=== PATIENT | male | born 1980 | race Caucasian/White ===

== ENCOUNTER 2018-01-21 05:19 | Day surgery (SDC) | payer OTHER ==
[~2018-01-21 05:19] MED LIST: CEFAZOLIN 2 GM/D5W RTU 2 GM/50 ML RTUPB IV PRN; LACTATED RINGERS 1000 ML IV PRN; LIDOCAINE 0.5% INJ-PF (5 MG/ML) 50 ML SDV SUBCUT PRN
[2018-01-21] MEDS ORDERED: CEFAZOLIN 2 GM/D5W RTU 2 GM/50 ML RTUPB IV ONE (05:58)
[2018-01-21] MEDS ORDERED: ONDANSETRON HCL INJ/PF 4 MG/2 ML SDV ONE (06:18)
[2018-01-21] MEDS ORDERED: FENTANYL CITRATE INJ/PF 250 MCG/5 ML AMPULE ONE (06:18)
[2018-01-21] MEDS ORDERED: ACETAMINOPHEN 1,000 MG/100 ML RTUPB IV ONE (06:18)
[2018-01-21] MEDS ORDERED: DEXAMETHASONE SOD PHOSPHATE INJ 4 MG/1 ML VIAL ONE (06:18)
[2018-01-21] MEDS ORDERED: PROPOFOL INJ 200 MG/20 ML VIAL IV ONE (06:18)
[2018-01-21] MEDS ORDERED: LIDOCAINE 2% INJ-PF (20 MG/ML) 10 ML AMPUL ONE (06:18)
[2018-01-21] MEDS ORDERED: MIDAZOLAM 2 MG/2 ML INJ ONE (06:19)
[2018-01-21] MEDS ORDERED: BUPIVACAINE HCL 0.5 % INJ/PF 30 ML SDV ONE (06:47)
[2018-01-21] MEDS ORDERED: DEXMEDETOMIDINE INJ 80 MCG/20 ML VIAL IV ONE (07:12)
[2018-01-21] MEDS ORDERED: SUCCINYLCHOLINE CHLORIDE INJ 200 MG/10 ML VIAL ONE (08:08)
[2018-01-21] MEDS ORDERED: DIPHENHYDRAMINE HCL 50 MG/ML VIAL IV PRN ×2 (08:20→10:31)
[2018-01-21] MEDS ORDERED: FENTANYL CITRATE INJ/PF 100 MCG/2 ML AMPUL IV PRN ×6 (08:20→10:31)
[2018-01-21] MEDS ORDERED: PROMETHAZINE HCL INJ 25 MG/1 ML VIAL IV PRN ×4 (08:20→10:31)
[2018-01-21] MEDS ORDERED: ONDANSETRON HCL INJ/PF 4 MG/2 ML SDV IV PRN ×3 (08:20→11:14)
[2018-01-21] MEDS ORDERED: MORPHINE SULFATE 10 MG/ML INJ IV PRN ×3 (08:20→11:14)
[2018-01-21] MEDS ORDERED: MEPERIDINE HCL/PF INJ 25 MG/1 ML DISP.SYRIN IV PRN ×2 (08:20→10:31)
[2018-01-21] MEDS ORDERED: OXYCODONE-ACETAMINOPHEN 5-325 MG TABLET PO PRN (11:14)
--- NOTE | 2018-01-21 11:15 | Discharge Summary ---
Discharge Summary (SDC) - Discharge Final Diagnosis: Osteoarthritis Left Elbow Date of Surgery: 01/21/18 Discharge Date: 01/21/18 Condition: Good Treatment or Instructions: Schedule Follow Up w/ Dr. Liban Sanchez @ [facility] to be seen in 10-14 days or as scheduled [place]: [place]: [place]: May remove dressing on postop day #3, keep incision covered and dry. Ice and elevate May begin finger range of motion attempting to make full fist. Stool softener of choice when on pain medication. Prescriptions: Ketorolac Tromethamine [Toradol 10 mg Tablet] 10 mg PO Q8HP PRN #12 tablet PRN Reason: Oxycodone HCl/Acetaminophen [Percocet 5-325 mg Tablet] 1 tab PO Q6 #25 tab Discharge Diet: As Tolerated Respiratory Treatments at Home: Deep Breathing/Coughing Discharge Activity: No Lifting Over 10 Pounds, No Lifting/Push/Pulling Report the Following to Your Physician Immediately: Fever over 101 Degrees, Unusual Bleeding, Redness, Swelling, Warmth, Increased Soreness
[2018-01-21] MEDS ORDERED: FENTANYL CITRATE INJ/PF 100 MCG/2 ML AMPUL ONE (11:17)
--- NOTE | 2018-01-21 11:23 | Operative Report ---
Operative Report DATE OF SURGERY: 01/21/18 PREOPERATIVE DIAGNOSIS: Osteoarthritis left elbow. Ulnar neuropathy left elbow POSTOPERATIVE DIAGNOSIS: Same OPERATION: Left elbow arthroscopic debridement with cubital tunnel release SURGEON: ALIDA DE LA CRUZ ANESTHESIA: GA COMPLICATIONS: None ESTIMATED BLOOD LOSS: Minimal PROCEDURE: Indication for above procedure: 37-year-old male who is an [employer] duty [employer] presented to my office with left elbow pain and limited range of motion. Patient attempted conservative measures including anti-inflammatories and Occupational Therapy. Patient had MRI demonstrating osteoarthritis with impinging osteophytes and ulnar neuropathy on examination. We discussed treatment options including operative versus nonoperative intervention. Risks and benefits were explained patient verbalized understanding consented for the procedure. Procedure In Detail: Patient was seen and evaluated in the preoperative holding area. The LEFT upper extremity was initialized and marked. Patient received 2g of Ancef IV for bacterial prophylaxis. Patient was taken back to the operative room where transferred to the operative table and placed under general anesthesia. Once they were adequately anesthetized a nonsterile tourniquet was placed on the upper extremity, patient was positioned in lateral position axillary roll was placed bony prominences were carefully padded. A surgical team debriefing was performed ensuring all instrumentation was available, the surgical procedure was discussed with possible concerns reviewed. The upper extremity was prepped with ChloraPrep and draped in a sterile fashion. A timeout was done identifying correct patient, procedure and extremity everyone in attendance agree with this and verbalized no concerns. The extremity was exsanguinated the tourniquet was inflated to 250 mmHg. Elbow was insufflated with 25 cc of saline within the soft spot. Anterior medial portal was established 2 cm proximal/anterior to the medial epicondyle. Blunt dissection performed with a hemostat. Arthroscope introduced into the elbow joint. Via triangulation anterior lateral portal was established 2 cm proximal/anterior to the lateral epicondyle. Diagnostic arthroscopy demonstrated significant degenerative changes with osteophytes along the coronoid and the anterior surface of the humerus with notable impingement. There is no evidence of full-thickness chondral changes along the humerus, radial head or ulna. There was evidence of loose bodies which were less than 1 mm in diameter. These were removed. The capsule was identified and carefully elevated from the anterior surface of the humerus. Arthroscopic shaver was introduced and a capsulotomy without suction to avoid iatrogenic nerve injury. Once adequate capsulotomy was performed arthroscopic shaver was introduced. The spurs along the anterior surface of the humerus proximal to the coronoid and trochlea were excised to normal-appearing bone. The osteophyte along the coronoid was then excised as well. Once complete patient had no evidence of impingement anteriorly and improved flexion. Ablator was introduced and the portion of the ECRB was identified and released and nonviable angiofibroblastic dysplasia excised. The arthroscopic shaver was then inserted any remaining loose bodies were excised. A central posterior portal and a posterior lateral portal were established. Any nonviable tissue was excised to expose the posterior olecranon and the olecranon fossa. The osteophyte along the posterior olecranon was identified and removed with an osteotome. The olecranon fossa was then debrided with a bur to avoid impingement of the olecranon tip into the olecranon fossa. Once adequate were debrided patient had full elbow extension and full elbow flexion. Given patient's preoperative limited flexion decision was made to proceed with cubital tunnel release. Tourniquet was deflated for 15 minutes and then reinflated. A longitudinal skin incision was made centered over the cubital tunnel. Careful dissection was done through the overlying soft tissues any peripheral vasculature was carefully coagulated with bipolar cautery. The branches of the medial antebrachial cutaneous nerve were identified and protected throughout the entirety of the case. Once within the confines of the cubital tunnel the ulnar nerve was identified at the proximal aspect of the wound. At this level I carefully released a medial portion of the triceps and the medial intermuscular septum freeing the ulnar nerve proximally of any overlying soft tissue compression. I then continued to track the ulnar nerve distally releasing Eller's fascia. At the level of the FCU aponeurosis between the 2 heads of the FCU muscle there is significant compression and hourglassing of the nerve at this level. The fascia was released once again relieving any external compression from the ulnar nerve distally past the level of the first motor branch. I then freed up the nerve posteriorly ensuring there is no remaining soft tissue bands causing compression. During dissection of the nerve careful attention was directed at avoiding disruption of the ulnar nerve blood supply. Elbow range of motion was then done from full flexion to full extension with full flexion there was no evidence of anterior subluxation of the ulnar nerve from the groove or compression proximally or distally. And thus I determined patient does not require transposition. Tourniquet was then deflated. Any peripheral bleeding was controlled with bipolar cautery. Subcutaneous tissues were closed with interrupted 4-0 Monocryl suture. Skin incision was closed with 3-0 nylon suture. 30 cc of 0.5% Marcaine without epinephrine was injected for postoperative pain control. Wound was dressed with Xeroform 4 x 4's and patient was placed in a soft bandage. Sponge counts, instrument counts, needle counts counts were correct. Patient was then awoken from anesthesia. Transferred from the operating room table to the operating room stretcher. There was no intraoperative complications patient tolerated procedure well stable to PACU. Postoperative plan: Patient will follow-up in the office as scheduled which point we will proceed with wound check. Patient will begin immediate occupational therapy beginning immediate range of motion.
[2018-01-21] MEDS ORDERED: KETOROLAC TROMETHAMINE INJ/PF 30 MG/1 ML SDV ONE (11:29)
[2018-01-21 13:18] VITALS: BP 131/68
== END 2018-01-21 12:50 | disposition home or self-care (01) ==
LOC: OROUT 05:19
PROVIDERS: ATTEND Orthopaedic Surgery
DX: M19.022 Primary osteoarthritis, left elbow (principal); G56.22 Lesion of ulnar nerve, left upper limb; F17.210 Nicotine dependence, cigarettes, uncomplicated; Z01.818 Encounter for other preprocedural examination
CPT/HCPCS: 64718; 29837; J2250; J3490 ×3; J1100; J3010 ×2; J1885; J0330; J2405; J2704; J0690; J0131; 1740